=== PATIENT | female | born 1955 | race Caucasian/White ===

== ENCOUNTER 2019-09-13 23:00 | Emergency (ER) | payer OTHER ==
[~2019-09-13] VITALS: Ht 165.1 cm; Wt 81.7 kg
--- NOTE | ~2019-09-13 | EKG ---
[address] [place] [address] ELECTROCARDIOGRAM REPORT Name: VENESSA AU Room #: [facility]#: [id number] Admission: 09/13/19 Attend Phys: Discharge: Date of : 53 Report #: [id number] THIS REPORT FOR: cc: Brittnee Diaz MD, Sara A. MD Epiphany, Epiphany MD ~ THIS REPORT FOR: //name// Default Test Date: 2019-09-14 Test Time: 01:20:41 Pat Name: VENESSA AU Department: Room: Gender: F [employer] Member: no : 1955 Requested By: Jas Haynes Order Number: [id number] MD: Measurements Intervals [place] Rate: 77 P: 59 IA: 140 QRS: 8 QRSD: 147 T: 28 QT: 451 QTc: 511 Interpretive Statements Sinus rhythm Right bundle branch block Baseline wander in lead(s) V2,V3 Compared to ECG 09/04/2003 09:39:56 No significant changes [email or web address] By: 0120 0120 Epiphany EpiphMD piper /EPI
[2019-09-14 02:07] VITALS: BP 109/73
== END 2019-09-14 02:00 | disposition home or self-care (01) ==
LOC: ER 23:00
DX: Z03.818 Encounter for observation for suspected exposure to other biological agents ruled out (principal); S00.33XA Contusion of nose, initial encounter; S00.83XA Contusion of other part of head, initial encounter; R55 Syncope and collapse; W18.39XA Other fall on same level, initial encounter; Y93.89 Activity, other specified; Y92.89 Other specified places as the place of occurrence of the external cause; Y99.8 Other external cause status